=== PATIENT | male | born 1975 | race Hispanic/Latino ===

== ENCOUNTER → 2017-09-15 | Outpatient (CLI) | payer BC ==
[~2017-09-15] MED LIST: PANTOPRAZOLE SO40 MG PO
--- NOTE | 2017-09-15 13:31 | Diagnostic Imaging Report ---
Examination: CT BRAIN WITHOUT CONTRAST History:Dizziness. Lightheadedness. Paresthesias. Left knee weakness. Comparison studies:None Technique: Axial images were obtained from the skull base to the vertex. Coronal and sagittal images reconstructed from the axial data. Intravenous contrast: None Findings: Scalp: No abnormalities. Bones: No fractures, blastic or lytic lesions. Brain sulci: Appropriate for age. Ventricles: Normal in size and configuration. No hydrocephalus. Extra-axial space: No abnormalities. Parenchyma: No abnormal densities. No masses, hemorrhage, or acute or chronic cortical based vascular insults.. Sellar/suprasellar region: No abnormalities. Craniocervical junction: Patent foramen magnum. No Chiari one malformation. Incidental findings: None. Impression: No intracranial abnormalities. Signed by: Dr. Susie Ac M.D. on 09/15/2017 1:28 PM
== END | disposition home or self-care (01) ==
LOC: CT 12:25
PROVIDERS: ATTEND Family Medicine
DX: R42 Dizziness and giddiness (principal); R29.898 Other symptoms and signs involving the musculoskeletal system; R20.2 Paresthesia of skin; R03.0 Elevated blood-pressure reading, without diagnosis of hypertension
CPT/HCPCS: 70450